=== PATIENT | female | born 1950 | race Caucasian/White ===

== ENCOUNTER 2021-08-28 07:22 | Day surgery (SDC) | payer MEDICARE, MEDICAID ==
[~2021-08-28 07:22] MED LIST: BUME1TAB6 PO; CARV12.530 PO; INSU3INS3 SQ; METF-446 PO; NIFE30TA98 PO; SACU1TAB4 PO; SODIUM CHLORIDE 0.9% 1,000 ML IV ONE; SODIUM CHLORIDE 0.9% 1,000 ML ONE; TRAM50TA4 PO
[2021-08-28] MEDS ORDERED: SODIUM CHLORIDE 0.9% 1,000 ML ONE (07:32)
[2021-08-28] MEDS ORDERED: DiphenhydrAMINE HCL 50 MG CAPSULE ONE (08:19)
[2021-08-28] MEDS ORDERED: DIAZEPAM 5 MG TABLET ONE (08:19)
[2021-08-28] MEDS ORDERED: ASPIRIN 81 MG CHEWABLE TABLET ONE (08:20)
[2021-08-28] MEDS ORDERED: HEPARIN SODIUM 1000 UNITS/NS 1,000 ML ONE (08:23)
[2021-08-28] MEDS ORDERED: IOHEXOL 300 MG/ML 150 ML VIAL ONE (08:23)
[2021-08-28] MEDS ORDERED: SODIUM BICARBONATE 50 MEQ/50 ML VIAL ONE (08:23)
[2021-08-28] MEDS ORDERED: IOHEXOL 300 MG/ML 100 ML VIAL ONE (08:23)
[2021-08-28] MEDS ORDERED: FentaNYL CITRATE PF 100 MCG/2 ML VIAL ONE (08:23)
[2021-08-28] MEDS ORDERED: MIDAZOLAM HCL 2 MG/2 ML VIAL ONE (08:23)
[2021-08-28] MEDS ORDERED: IOHEXOL 300 MG/ML 50 ML VIAL ONE (08:23)
[2021-08-28] MEDS ORDERED: LIDOCAINE/PF 1% 30 ML VIAL ONE (08:23)
[2021-08-28] MEDS ORDERED: LIDOCAINE/PF 1% 30 ML VIAL SQ ONE (08:30)
[2021-08-28] MEDS ORDERED: IOHEXOL 300 MG/ML 150 ML VIAL ICOR ONE (08:30)
[2021-08-28] MEDS ORDERED: SODIUM BICARBONATE 50 MEQ/50 ML VIAL SQ ONE (08:30)
[2021-08-28] MEDS ORDERED: HEPARIN SODIUM 1000 UNITS/NS 1,000 ML IARTER ONE (08:30)
[2021-08-28 08:46] LABS: GLUCOMETER DEV NAME(LOC) SDS.; GLUCOSE,POINT OF CARE 188 MG/DL (70-110)
[2021-08-28] MEDS ORDERED: DiphenhydrAMINE HCL 50 MG CAPSULE PO ONE (09:00)
[2021-08-28] MEDS ORDERED: ASPIRIN 81 MG CHEWABLE TABLET PO ONE (09:00)
[2021-08-28] MEDS ORDERED: DIAZEPAM 5 MG TABLET PO ONE (09:00)
[2021-08-28] MEDS ORDERED: MIDAZOLAM HCL 2 MG/2 ML VIAL IVP ONE (09:15)
[2021-08-28] MEDS ORDERED: FentaNYL CITRATE PF 100 MCG/2 ML VIAL IVP ONE (09:15)
== END 2021-08-28 14:25 | disposition home or self-care (01) ==
LOC: CATHLAB 07:22
PROVIDERS: ATTEND Internal Medicine Interventional Cardiology
DX: R94.39 Abnormal result of other cardiovascular function study (principal); I25.110 Atherosclerotic heart disease of native coronary artery with unstable angina pectoris; I27.20 Pulmonary hypertension, unspecified; I11.0 Hypertensive heart disease with heart failure; I50.9 Heart failure, unspecified; K21.9 Gastro-esophageal reflux disease without esophagitis; E11.9 Type 2 diabetes mellitus without complications; Z79.82 Long term (current) use of aspirin; Z98.890 Other specified postprocedural states; Z79.899 Other long term (current) drug therapy; E78.5 Hyperlipidemia, unspecified; Z98.49 Cataract extraction status, unspecified eye; Z72.89 Other problems related to lifestyle
CPT/HCPCS: 82962; 93005; 93460; 99152; 99153; C1760; C1892; J1644; J2250; J3010; J3490 ×2; J7030; Q9967